=== PATIENT | female | born 1985 | race Caucasian/White ===

== ENCOUNTER 2016-05-12 01:39 | Emergency (ER) | payer OTHER ==
[~2016-05-12] VITALS: Ht 162.6 cm; Wt 47.0 kg
[~2016-05-12 01:39] MED LIST: AMBIEN5 MG PO; ANTIVERT25 MG PO; ARTIFICIALS TEA30 ML LEFT EYE; ATIVAN0.5 MG PO; BUSPAR15 MG PO; CYCLOBENZAPRINE10 MG PO; FLEXERIL5 MG PO; FOLIC ACID1 MG PO; HYDROXYZINE HCL25 MG PO; IBUPROFEN800 MG PO; LITHIUM CARBON600 MG PO; MACROBID100 MG PO; METHADONE10 MG PO; NAPROXEN250 MG PO; NORCO 5/3251 TABLET PO; OMEPRAZOLE20 M2 PO; PAROXETINE HCL30 MG PO; PREDNISONE10 MG PO; PRENATAL TABLE1 EAC3 PO; PROAIR HFA8.5 GM IH; PROMETHAZINE12.5 M1 PO; RANITIDINE HCL150 M1 PO; RANITIDINE HCL150 MG PO; SYNTHROID112 MCG PO; TYLENOL EXTRA500 MG PO; VOLTAREN 1% GE100 GM TP; ZITHROMAX250 MG PO; ZOFRAN ODT4 MG PO; ZYPREXA5 MG PO; ZYRTEC10 M3 PO
[2016-05-12] MEDS ORDERED: LIDOCARE1 EACH TP (04:15)
[2016-05-12 04:29] VITALS: BP 133/83
== END 2016-05-12 04:36 | disposition home or self-care (01) ==
LOC: EME 01:39
DX: S16.1XXA Strain of muscle, fascia and tendon at neck level, initial encounter (principal); V49.40XA Driver injured in collision with unspecified motor vehicles in traffic accident, initial encounter
CPT/HCPCS: 72040; 99281; 99284

== ENCOUNTER 2016-07-03 01:48 | Emergency (ER) | payer OTHER ==
[~2016-07-03] VITALS: Ht 160 cm; Wt 50.4 kg
[~2016-07-03 01:48] MED LIST changes: +LIDOCARE1 EACH TP
[2016-07-03 02:50] VITALS: BP 130/92
== END 2016-07-03 02:52 | disposition home or self-care (01) ==
LOC: EME 01:48
DX: F41.9 Anxiety disorder, unspecified (principal); F17.200 Nicotine dependence, unspecified, uncomplicated
CPT/HCPCS: 99281; 99283

== ENCOUNTER → 2016-07-09 | Outpatient (CLI) | payer OTHER | END | disposition home or self-care (01) | LOC: CDC 11:27 | DX: R00.0 Tachycardia, unspecified (principal); I51.7 Cardiomegaly; I45.81 Long QT syndrome | CPT/HCPCS: 93000 ==

== ENCOUNTER 2016-07-22 04:19 | Emergency (ER) | payer OTHER ==
[~2016-07-22] VITALS: Ht 160 cm; Wt 51.3 kg
[2016-07-22 05:09] VITALS: BP 134/99
== END 2016-07-22 05:12 | disposition home or self-care (01) ==
LOC: EME 04:19
DX: F41.9 Anxiety disorder, unspecified (principal); S06.0X0A Concussion without loss of consciousness, initial encounter; S43.401A Unspecified sprain of right shoulder joint, initial encounter; S80.11XA Contusion of right lower leg, initial encounter; W22.09XA Striking against other stationary object, initial encounter; Y92.008 Other place in unspecified non-institutional (private) residence as the place of occurrence of the external cause; F17.200 Nicotine dependence, unspecified, uncomplicated
CPT/HCPCS: 99281; 99285

== ENCOUNTER 2016-09-28 14:06 | Emergency (ER) | payer OTHER ==
[~2016-09-28] VITALS: Ht 160 cm; Wt 43.7 kg
[2016-09-28] MEDS ORDERED: PEPCID20 MG PO (15:42)
[2016-09-28 16:00] VITALS: BP 130/84
== END 2016-09-28 16:01 | disposition home or self-care (01) ==
LOC: EME 14:06
DX: R21 Rash and other nonspecific skin eruption (principal); W57.XXXA Bitten or stung by nonvenomous insect and other nonvenomous arthropods, initial encounter; K21.9 Gastro-esophageal reflux disease without esophagitis; F17.200 Nicotine dependence, unspecified, uncomplicated
CPT/HCPCS: 99281; 99283; Q0169

== ENCOUNTER 2016-10-11 22:33 | Emergency (ER) | payer OTHER ==
[~2016-10-11] VITALS: Ht 160 cm; Wt 47.2 kg
[~2016-10-11 22:33] MED LIST changes: +PEPCID20 MG PO
[2016-10-11 23:59] LABS: EOSINOPHIL (%) 1.4 % (0-5); EOSINOPHIL COUNT 0.1 K/uL (0-0.3); HEMATOCRIT 38.2 % (36.0-46.0); IMMATURE GRANULOCYTE (%) 0.3 % (0.0-0.7); INSTRUMENT ABS NEUTROPHIL CT 3.1 K/uL; LYMPHOCYTE COUNT 3.5 K/uL (1.0-2.8); MCH 30.8 PG (29.0-34.0); MCHC 33.2 G/DL (30.0-36.0); MCV 92.7 FL (83-99); MEAN PLAT.VOLUME 10.2 uM^3 (9.5-12.4); MONOCYTE (%) 7.6 % (3-12); MONOCYTE COUNT 0.6 K/uL (0-0.8); NEUTROPHIL (%) 42.7 % (45-76); NEUTROPHIL COUNT 3.1 K/uL (1.8-6.4); PLATELET COUNT 116 K/uL (156-360); RBC DIS.WIDTH-CV 12.1 % (11.8-14.6); RBC DIS.WIDTH-SD 41.6 % (39-53); RED BLOOD COUNT 4.12 M/uL (3.80-5.20); WHITE BLOOD COUNT 7.4 K/uL (4.1-10.2)
[2016-10-12 00:07] LABS: CHLORIDE 104 mEq/L (99-109); POTASSIUM 3.7 mEq/L (3.7-5.4); SODIUM 139 mEq/L (136-147)
[2016-10-12 00:09] LABS: GLUCOSE 75 mg/dL (70-99)
[2016-10-12 00:10] LABS: ANION GAP 8 MEQ/L (2-14)
[2016-10-12 00:13] LABS: GFR ESTIMATE (CALCULATED) > 59 mL/min/; UREA NITROGEN (BUN) 19 mg/dL (9-23)
[2016-10-12 00:22] LABS: QUANTITATIVE HCG < 4.0 MIU/ML
[2016-10-12 00:58] LABS: SERUM ETHYL ALCOHOL < 10 mg/dL
[2016-10-12 01:01] LABS: SALICYLATE < 5.0 MG/DL (15-30)
[2016-10-12] MEDS ORDERED: NARCAN4 MG NS (02:44)
[2016-10-12 02:56] LABS: AMPHETAMINE NEGATIVE (500 ng/mL); COCAINE NEGATIVE (150 ng/mL); METHAMPHETAMINE NEGATIVE (500 ng/mL); OPIATES (MORPHINE) NEGATIVE (100 ng/mL); PHENCYCLIDINE NEGATIVE (25 ng/mL); THC CANNABINOIDS NEGATIVE (50 ng/mL)
[2016-10-12 02:57] LABS: ADD MEDTOX COMMENT Y; BARBITURATES NEGATIVE (200 ng/mL); BENZODIAZEPINES PRESUMPTIVE POSITIVE (150 ng/mL); INTERNAL CONTROLS VALID? YES; METHADONE PRESUMPTIVE POSITIVE (200 ng/mL); OXYCODONE NEGATIVE (100 ng/mL); PROPOXYPHENE NEGATIVE (300 ng/mL); TRICYCLIC ANTIDEPRESSANTS NEGATIVE (300 ng/mL)
[2016-10-12 03:23] VITALS: BP 111/69
[2016-10-12 03:39] LABS: BENZODIAZEPINES, URINE SCREEN POSITIVE (200 ng/mL)
== END 2016-10-12 03:24 | disposition home or self-care (01) ==
LOC: EME 22:33
PROVIDERS: Physician Assistant
DX: F11.10 Opioid abuse, uncomplicated (principal); R41.82 Altered mental status, unspecified; R51 Headache; M54.2 Cervicalgia; S80.212A Abrasion, left knee, initial encounter; W01.0XXA Fall on same level from slipping, tripping and stumbling without subsequent striking against object, initial encounter; Y99.0 Civilian activity done for income or pay; Z72.0 Tobacco use
CPT/HCPCS: 70450; 72125; 73564; 80048; 84702; 84999; 85025; 93005; 99281; 99284; G0480; J2060; J2310; J7030

== ENCOUNTER 2016-10-15 21:42 | Emergency (ER) | payer OTHER ==
[~2016-10-15] VITALS: Ht 160 cm; Wt 42.7 kg
[~2016-10-15 21:42] MED LIST changes: +NARCAN4 MG NS
[2016-10-16] MEDS ORDERED: BACTRIM,SEPT1 TABLET PO (00:06)
[2016-10-16] MEDS ORDERED: CLEOCIN300 MG PO (00:06)
[2016-10-16] MEDS ORDERED: MUPIROCIN1 GM TP (00:21)
[2016-10-16 00:24] VITALS: BP 118/75
== END 2016-10-16 00:25 | disposition home or self-care (01) ==
LOC: EME 21:42
DX: S80.869A Insect bite (nonvenomous), unspecified lower leg, initial encounter (principal); L03.119 Cellulitis of unspecified part of limb; S90.426A Blister (nonthermal), unspecified lesser toe(s), initial encounter; W18.40XA Slipping, tripping and stumbling without falling, unspecified, initial encounter; W57.XXXA Bitten or stung by nonvenomous insect and other nonvenomous arthropods, initial encounter; Z88.1 Allergy status to other antibiotic agents; Z88.0 Allergy status to penicillin; Z88.6 Allergy status to analgesic agent; F17.200 Nicotine dependence, unspecified, uncomplicated
CPT/HCPCS: 99281; 99283

== ENCOUNTER 2017-02-08 14:46 | Inpatient (IN) | payer OTHER ==
[~2017-02-08] VITALS: Ht 165.1 cm; Wt 54.5 kg
[~2017-02-08 14:46] MED LIST changes: +BACTRIM,SEPT1 TABLET PO; +CLEOCIN300 MG PO; +MUPIROCIN1 GM TP
[2017-02-08 15:36] LABS: HEMATOCRIT 37.4 % (36.0-46.0); MCH 31.6 PG (29.0-34.0); MCHC 33.4 G/DL (30.0-36.0); MCV 94.7 FL (83-99); MEAN PLAT.VOLUME 9.6 uM^3 (9.5-12.4); PLATELET COUNT 139 K/uL (156-360); RBC DIS.WIDTH-CV 11.5 % (11.8-14.6); RED BLOOD COUNT 3.95 M/uL (3.80-5.20); WHITE BLOOD COUNT 6.6 K/uL (4.1-10.2)
[2017-02-08 15:43] LABS: CHLORIDE 107 mEq/L (99-109); POTASSIUM 3.5 mEq/L (3.7-5.4); SODIUM 139 mEq/L (136-147)
[2017-02-08 15:45] LABS: GLUCOSE 81 mg/dL (70-99)
[2017-02-08 15:46] LABS: ANION GAP 8 MEQ/L (2-14)
[2017-02-08 15:47] LABS: TOTAL BILIRUBIN 0.2 mg/dL (0.0-1.0)
[2017-02-08 15:48] LABS: SERUM ETHYL ALCOHOL < 10 mg/dL
[2017-02-08 15:49] LABS: ALKALINE PHOSPHATASE 59 IU/L (3-129); GFR ESTIMATE (CALCULATED) > 59 mL/min/
[2017-02-08 15:51] LABS: UREA NITROGEN (BUN) 16 mg/dL (9-23)
[2017-02-08 15:52] LABS: SALICYLATE < 5.0 MG/DL (15-30)
[2017-02-08 16:01] LABS: QUANTITATIVE HCG < 4.0 MIU/ML
[2017-02-08 16:41] LABS: ADD MIUA? NO; BILIRUBIN NEGATIVE; BLOOD NEGATIVE; COLOR YELLOW ((YELLOW)); GLUCOSE (STRIP) NEGATIVE; KETONES NEGATIVE; LEUKOCYTES NEGATIVE; NITRITE NEGATIVE; PROTEIN (STRIP) NEGATIVE; SPECIFIC GRAVITY 1.021 (1.000-1.030); UROBILINOGEN 0.2 MG/DL (0.2-1.0)
[2017-02-08 16:52] LABS: AMPHETAMINE NEGATIVE (500 ng/mL); BARBITURATES NEGATIVE (200 ng/mL); BENZODIAZEPINES PRESUMPTIVE POSITIVE (150 ng/mL); COCAINE NEGATIVE (150 ng/mL); INTERNAL CONTROLS VALID? YES; METHADONE PRESUMPTIVE POSITIVE (200 ng/mL); METHAMPHETAMINE NEGATIVE (500 ng/mL); OPIATES (MORPHINE) NEGATIVE (100 ng/mL); OXYCODONE NEGATIVE (100 ng/mL); PHENCYCLIDINE NEGATIVE (25 ng/mL); PROPOXYPHENE NEGATIVE (300 ng/mL); THC CANNABINOIDS NEGATIVE (50 ng/mL); TRICYCLIC ANTIDEPRESSANTS NEGATIVE (300 ng/mL)
[2017-02-08 16:53] LABS: ADD MEDTOX COMMENT Y
[2017-02-08 17:19] LABS: BENZODIAZEPINES, URINE SCREEN POSITIVE (200 ng/mL)
[2017-02-09 00:53] VITALS: BP 104/69
[2017-02-09 08:15] VITALS: BP 96/55
[2017-02-09 16:01] VITALS: BP 115/82
[2017-02-10 08:02] VITALS: BP 114/65
[2017-02-10] MEDS ORDERED: LEVOTHYROXINE175 MCG PO (09:27)
[2017-02-10] MEDS ORDERED: QUETIAPINE FUMA50 MG PO (09:27)
[2017-02-10] MEDS ORDERED: CLONAZEPAM0.5 MG PO (09:27)
[2017-02-10] MEDS ORDERED: BUSPAR10 MG PO (09:31)
== END 2017-02-10 10:51 | disposition home or self-care (01) | DRG 882 ==
LOC: EME 14:46 → EDOF 22:31 → 1WEST 22:31 → ENRESERV 02-09 00:37 → 1WEST 02-09 00:37
PROVIDERS: Emergency Medicine
DX: F43.25 Adjustment disorder with mixed disturbance of emotions and conduct (principal); G47.00 Insomnia, unspecified; F60.9 Personality disorder, unspecified; F17.200 Nicotine dependence, unspecified, uncomplicated; Z81.8 Family history of other mental and behavioral disorders; Z56.0 Unemployment, unspecified; F11.20 Opioid dependence, uncomplicated; F13.120 Sedative, hypnotic or anxiolytic abuse with intoxication, uncomplicated; T42.4X2A Poisoning by benzodiazepines, intentional self-harm, initial encounter
CPT/HCPCS: 80053; 81003; 84702; 84999; 85027; 90837; 99281; 99284; G0480; J7030; Q0169

== ENCOUNTER 2017-03-20 13:58 | Emergency (ER) | payer OTHER ==
[~2017-03-20] VITALS: Ht 160 cm; Wt 49.2 kg
[~2017-03-20 13:58] MED LIST changes: +BUSPAR10 MG PO; +CLONAZEPAM0.5 MG PO; +LEVOTHYROXINE175 MCG PO; +QUETIAPINE FUMA50 MG PO
[2017-03-20 15:54] VITALS: BP 116/75
== END 2017-03-20 15:58 | disposition left against medical advice (07) ==
LOC: EME 13:58
DX: S01.01XA Laceration without foreign body of scalp, initial encounter (principal); S40.212A Abrasion of left shoulder, initial encounter; W19.XXXA Unspecified fall, initial encounter; F19.10 Other psychoactive substance abuse, uncomplicated; Z23 Encounter for immunization; Z53.20 Procedure and treatment not carried out because of patient's decision for unspecified reasons; F17.200 Nicotine dependence, unspecified, uncomplicated
CPT/HCPCS: 99281; 99285

== ENCOUNTER 2017-06-05 15:06 | Emergency (ER) | payer OTHER ==
[~2017-06-05] VITALS: Ht 160 cm; Wt 58.7 kg
[2017-06-05] MEDS ORDERED: METHADONE1 MG/1 ML PO (15:22)
[2017-06-05 16:26] LABS: BASOPHIL (%) 0.4 % (0-1); EOSINOPHIL COUNT 0.1 K/uL (0-0.3); HEMATOCRIT 36.8 % (36.0-46.0); HEMOGLOBIN 12.3 G/DL (11.9-15.5); IMMATURE GRANULOCYTE (%) 0.2 % (0.0-0.7); LYMPHOCYTE (%) 27.2 % (15-42); LYMPHOCYTE COUNT 2.3 K/uL (1.0-2.8); MCH 32.4 PG (29.0-34.0); MCHC 33.4 G/DL (30.0-36.0); MCV 96.8 FL (83-99); MONOCYTE (%) 6.2 % (3-12); MONOCYTE COUNT 0.5 K/uL (0-0.8); NEUTROPHIL COUNT 5.5 K/uL (1.8-6.4); PLATELET COUNT 137 K/uL (156-360); RBC DIS.WIDTH-CV 12.4 % (11.8-14.6); RBC DIS.WIDTH-SD 44.4 % (39-53); WHITE BLOOD COUNT 8.4 K/uL (4.1-10.2)
[2017-06-05 16:37] LABS: ALBUMIN 3.7 g/dL (3.2-4.8); CHLORIDE 106 mEq/L (99-109); POTASSIUM 3.7 mEq/L (3.7-5.4); SODIUM 142 mEq/L (136-147)
[2017-06-05 16:39] LABS: GLUCOSE 78 mg/dL (70-99)
[2017-06-05 16:41] LABS: TOTAL BILIRUBIN 0.4 mg/dL (0.0-1.0)
[2017-06-05 16:42] LABS: SERUM ETHYL ALCOHOL < 10 mg/dL
[2017-06-05 16:43] LABS: ALKALINE PHOSPHATASE 56 IU/L (3-129); CREATININE 0.8 mg/dL (0.6-1.3); GFR ESTIMATE (CALCULATED) > 59 mL/min/
[2017-06-05 16:44] LABS: AST (GOT) 16 IU/L (2-34); UREA NITROGEN (BUN) 22 mg/dL (9-23)
[2017-06-05 16:46] LABS: ALT (GPT) 19 IU/L (3-49)
[2017-06-05 16:53] LABS: QUANTITATIVE HCG < 4.0 MIU/ML
[2017-06-05] MEDS ORDERED: NARCAN4 MG NS (20:44)
[2017-06-05 21:02] VITALS: BP 109/70
== END 2017-06-05 21:03 | disposition home or self-care (01) ==
LOC: EME 15:06
PROVIDERS: Emergency Medicine
DX: T40.3X1A Poisoning by methadone, accidental (unintentional), initial encounter (principal); R01.1 Cardiac murmur, unspecified; F17.200 Nicotine dependence, unspecified, uncomplicated; Z88.0 Allergy status to penicillin; Z88.1 Allergy status to other antibiotic agents; Z88.5 Allergy status to narcotic agent; Z88.8 Allergy status to other drugs, medicaments and biological substances
CPT/HCPCS: 80053; 84702; 85025; 99281; 99285; G0480; J2310; J7030

== ENCOUNTER 2017-07-07 20:05 | Inpatient (IN) | payer OTHER ==
[~2017-07-07] VITALS: Ht 162.6 cm; Wt 56.3 kg
[~2017-07-07 20:05] MED LIST changes: +METHADONE1 MG/1 ML PO
[2017-07-07 20:41] LABS: BASOPHIL (%) 0.1 % (0-1); EOSINOPHIL (%) 0 % (0-5); HEMATOCRIT 38.3 % (36.0-46.0); HEMOGLOBIN 13.1 G/DL (11.9-15.5); IMMATURE GRANULOCYTE (%) 0.4 % (0.0-0.7); LYMPHOCYTE (%) 9.3 % (15-42); LYMPHOCYTE COUNT 0.8 K/uL (1.0-2.8); MCHC 34.2 G/DL (30.0-36.0); MCV 93.6 FL (83-99); MONOCYTE (%) 5.6 % (3-12); MONOCYTE COUNT 0.5 K/uL (0-0.8); NEUTROPHIL (%) 84.6 % (45-76); NEUTROPHIL COUNT 7.5 K/uL (1.8-6.4); PLATELET COUNT 133 K/uL (156-360); RBC DIS.WIDTH-CV 11.8 % (11.8-14.6); RBC DIS.WIDTH-SD 40.5 % (39-53); RED BLOOD COUNT 4.09 M/uL (3.80-5.20); WHITE BLOOD COUNT 8.9 K/uL (4.1-10.2)
[2017-07-07 20:52] LABS: BASE EXCESS -5.2 mEq/L (-3 to +3); CARBOXY HGB 1.9 % (0-5); METHEMOGLOBIN 1.3 % (0-1.5); PCO2 37 mm Hg (35-45); PO2 > 583 mm Hg (80-100); SITE RR; pH 7.34 (7.35-7.45)
[2017-07-07 20:53] LABS: COMMENTS - BLOOD GASES C+A+; DEVICE VENT; FI02 100 %; MECHANICAL RATE 20 resp/min; MODE AC; PEEP 5 CM/H20; TIDAL VOLUME 400 ML; TOTAL RESP RATE 20 resp/min
[2017-07-07 20:59] LABS: ALBUMIN 3.9 g/dL (3.2-4.8)
[2017-07-07 20:59] LABS: APPEARANCE CLOUDY ((CLEAR)); BILIRUBIN NEGATIVE; BLOOD NEGATIVE; GLUCOSE (STRIP) NEGATIVE; KETONES NEGATIVE; LEUKOCYTES MODERATE; NITRITE NEGATIVE; PROTEIN (STRIP) 100; SPECIFIC GRAVITY 1.024 (1.000-1.030); UROBILINOGEN 0.2 MG/DL (0.2-1.0)
[2017-07-07 21:00] LABS: CHLORIDE 107 mEq/L (99-109); POTASSIUM 3.1 mEq/L (3.7-5.4); SODIUM 140 mEq/L (136-147)
[2017-07-07 21:02] LABS: GLUCOSE 205 mg/dL (70-99); TOTAL PROTEIN 6.7 g/dL (6.4-8.3)
[2017-07-07 21:03] LABS: TROP-I INTERPRETATION NEGATIVE; TROPONIN-I 0.01 ng/mL (0.0-0.30)
[2017-07-07 21:03] LABS: COLOR YELLOW ((YELLOW))
[2017-07-07 21:04] LABS: TOTAL BILIRUBIN 0.4 mg/dL (0.0-1.0)
[2017-07-07 21:05] LABS: SERUM ETHYL ALCOHOL < 10 mg/dL
[2017-07-07 21:06] LABS: ALKALINE PHOSPHATASE 66 IU/L (3-129); GFR ESTIMATE (CALCULATED) > 59 mL/min/
[2017-07-07 21:07] LABS: AST (GOT) 33 IU/L (2-34)
[2017-07-07 21:08] LABS: UREA NITROGEN (BUN) 22 mg/dL (9-23)
[2017-07-07 21:09] LABS: ALT (GPT) 28 IU/L (3-49); SALICYLATE < 5.0 MG/DL (15-30)
[2017-07-07 21:10] LABS: ACETAMINOPHEN (TYLENOL) < 10 mcg/mL (10-30); TOTAL CK 1884 IU/L (1-294)
[2017-07-07 21:10] LABS: AMPHETAMINE NEGATIVE (500 ng/mL); BARBITURATES NEGATIVE (200 ng/mL); BENZODIAZEPINES PRESUMPTIVE POSITIVE (150 ng/mL); BUPRENORPHINE NEGATIVE (10 ng/mL); COCAINE NEGATIVE (150 ng/mL); METHADONE PRESUMPTIVE POSITIVE (200 ng/mL); METHAMPHETAMINE NEGATIVE (500 ng/mL); OPIATES (MORPHINE) NEGATIVE (100 ng/mL); OXYCODONE NEGATIVE (100 ng/mL); PHENCYCLIDINE NEGATIVE (25 ng/mL); PROPOXYPHENE PRESUMPTIVE POSITIVE (300 ng/mL); THC CANNABINOIDS NEGATIVE (50 ng/mL); TRICYCLIC ANTIDEPRESSANTS PRESUMPTIVE POSITIVE (300 ng/mL)
[2017-07-07 21:16] LABS: QUANTITATIVE HCG 95.1 MIU/ML
[2017-07-07 21:20] LABS: CREATINE KINASE 1884 IU/L (1-294)
[2017-07-07 21:43] LABS: RED BLOOD CELLS NONE SEEN /HPF (0-5)
[2017-07-07 21:44] LABS: EPITHELIAL CELLS 3+ /HPF; MUCUS NONE SEEN /LPF
[2017-07-07 21:45] LABS: BACTERIA 2+ /HPF; UCUL ADDED? YES
[2017-07-07 21:55] LABS: MAGNESIUM 1.9 mg/dL (1.3-2.7)
[2017-07-07 22:16] LABS: BENZODIAZEPINES, URINE SCREEN POSITIVE (200 ng/mL)
[2017-07-07] MEDS ORDERED: BUSPAR30 MG PO (22:19)
[2017-07-07] MEDS ORDERED: REMERON30 M2 PO (22:20)
[2017-07-07] MEDS ORDERED: PRAZOSIN HCL2 MG PO (22:20)
[2017-07-07] MEDS ORDERED: PROMETHAZINE HC25 M1 PO (22:21)
[2017-07-07] MEDS ORDERED: XANAX1 MG PO (22:21)
[2017-07-07] MEDS ORDERED: TRILEPTAL150 MG PO (22:22)
[2017-07-07] MEDS ORDERED: NEURONTIN300 MG PO (22:22)
[2017-07-07] MEDS ORDERED: OMEPRAZOLE10 M1 PO (22:23)
[2017-07-07 22:24] LABS: CK-MB 2.7 ng/mL (0.0-4.9); CKMB RELATIVE INDEX 0.1 (0.0-3.9)
[2017-07-07] MEDS ORDERED: SEROQUEL300 MG PO (22:24)
[2017-07-07] MEDS ORDERED: NARCAN4 MG NS (22:34)
[2017-07-07] MEDS ORDERED: IBUPROFEN800 MG PO (22:35)
[2017-07-07] MEDS ORDERED: TYLENOL EXTRA500 MG PO (22:36)
[2017-07-07 22:38] LABS: CHLORIDE 112 mEq/L (99-109); POTASSIUM 3.3 mEq/L (3.7-5.4); SODIUM 141 mEq/L (136-147)
[2017-07-07 22:40] LABS: GLUCOSE 134 mg/dL (70-99)
[2017-07-07 22:43] LABS: CREATININE 0.8 mg/dL (0.6-1.3); GFR ESTIMATE (CALCULATED) > 59 mL/min/
[2017-07-07] MEDS ORDERED: LEVO-T175 MCG PO (22:43)
[2017-07-07 22:44] LABS: UREA NITROGEN (BUN) 19 mg/dL (9-23)
[2017-07-07 22:53] LABS: QUANTITATIVE HCG 81.1 MIU/ML
[2017-07-07 23:15] VITALS: BP 131/72
[2017-07-08] VITALS (21 sets, daily range): BP systolic 90–140; BP diastolic 40–118
[2017-07-08 05:54] LABS: BASE EXCESS -1.9 mEq/L (-3 to +3); BICARBONATE 22.1 mEq/L (22-26); CARBOXY HGB 1.1 % (0-5); METHEMOGLOBIN 1.7 % (0-1.5); PCO2 34 mm Hg (35-45); PO2 152 mm Hg (80-100); pH 7.42 (7.35-7.45)
[2017-07-08 05:55] LABS: COMMENTS - BLOOD GASES C+; DEVICE VENT; FI02 30 %; MECHANICAL RATE 20 resp/min; MODE A/C; PEEP 5 CM/H20; SITE RR; TIDAL VOLUME 400 ML; TOTAL RESP RATE 21 resp/min
[2017-07-08 06:10] LABS: BASOPHIL (%) 0.1 % (0-1); EOSINOPHIL (%) 0 % (0-5); HEMATOCRIT 29.9 % (36.0-46.0); IMMATURE GRANULOCYTE (%) 0.5 % (0.0-0.7); LYMPHOCYTE (%) 13.9 % (15-42); LYMPHOCYTE COUNT 1.3 K/uL (1.0-2.8); MCH 32.2 PG (29.0-34.0); MCHC 33.1 G/DL (30.0-36.0); MCV 97.4 FL (83-99); MONOCYTE (%) 5.5 % (3-12); MONOCYTE COUNT 0.5 K/uL (0-0.8); NEUTROPHIL COUNT 7.4 K/uL (1.8-6.4); PLATELET COUNT 116 K/uL (156-360); WHITE BLOOD COUNT 9.2 K/uL (4.1-10.2)
[2017-07-08 06:14] LABS: HEMOGLOBIN 9.9 G/DL (11.9-15.5); RED BLOOD COUNT 3.07 M/uL (3.80-5.20)
[2017-07-08 06:24] LABS: CHLORIDE 115 MEQ/L (99-109); CREATININE 0.6 MG/DL (0.6-1.3); GFR ESTIMATE (CALCULATED) > 59 mL/min/; GLUCOSE 119 mg/dL (70-99); PHOSPHORUS 2.3 mg/dL (2.5-4.9); POTASSIUM 3.4 MEQ/L (3.7-5.4); SODIUM 146 MEQ/L (136-147); UREA NITROGEN (BUN) 14 mg/dL (9-23)
[2017-07-08 06:26] LABS: CREATINE KINASE 1239 IU/L (1-294)
[2017-07-09] VITALS (23 sets, daily range): BP systolic 103–150; BP diastolic 55–138
[2017-07-10] VITALS (8 sets, daily range): BP systolic 126–146; BP diastolic 76–90
[2017-07-10 05:27] LABS: HEMATOCRIT 33.1 % (36.0-46.0); HEMOGLOBIN 11.1 G/DL (11.9-15.5); MCHC 33.5 G/DL (30.0-36.0); MCV 95.4 FL (83-99); PLATELET COUNT 127 K/uL (156-360); RBC DIS.WIDTH-CV 12.3 % (11.8-14.6); RBC DIS.WIDTH-SD 43.1 % (39-53); RED BLOOD COUNT 3.47 M/uL (3.80-5.20); WHITE BLOOD COUNT 7.5 K/uL (4.1-10.2)
[2017-07-10 06:00] LABS: ALBUMIN 3.5 G/DL (3.2-4.8); ALKALINE PHOSPHATASE 49 IU/L (3-129); ALT (GPT) 50 IU/L (3-49); AST (GOT) 90 IU/L (2-34); CHLORIDE 104 MEQ/L (99-109); CREATININE 0.5 MG/DL (0.6-1.3); GFR ESTIMATE (CALCULATED) > 59 mL/min/; GLUCOSE 94 mg/dL (70-99); POTASSIUM 3.5 MEQ/L (3.7-5.4); SODIUM 140 MEQ/L (136-147); TOTAL BILIRUBIN 0.4 MG/DL (0.0-1.0); TOTAL PROTEIN 5.9 G/DL (6.4-8.3); UREA NITROGEN (BUN) 4 mg/dL (9-23)
[2017-07-10 06:26] LABS: CREATINE KINASE 4468 IU/L (1-294)
[2017-07-10 15:15] LABS: ALBUMIN 3.6 G/DL (3.2-4.8); ALKALINE PHOSPHATASE 49 IU/L (3-129); ALT (GPT) 49 IU/L (3-49); AST (GOT) 74 IU/L (2-34); DIRECT BILIRUBIN 0.1 mg/dL (0.0-0.3); TOTAL PROTEIN 6.3 G/DL (6.4-8.3)
[2017-07-10 15:24] LABS: CREATINE KINASE 2834 IU/L (1-294); TOTAL BILIRUBIN 0.3 MG/DL (0.0-1.0)
[2017-07-10 17:54] LABS: QUANTITATIVE HCG 311.4 MIU/ML
[2017-07-11 01:11] VITALS: BP 129/68
[2017-07-11 04:03] VITALS: BP 117/81
[2017-07-11 08:20] VITALS: BP 121/77
[2017-07-11] MEDS ORDERED: AMOX TR-K CLV1 EAC4 PO (10:06)
[2017-07-11] MEDS ORDERED: NICOTINE PATCH1 EAC1 TD (10:06)
[2017-07-11] MEDS ORDERED: MINIPRESS2 MG PO (17:49)
[2017-07-11] MEDS ORDERED: TYLENOL WITH C1 EACH PO (17:53)
[2017-07-11] MEDS ORDERED: REMERON30 M2 PO (17:56)
[2017-07-11] MEDS ORDERED: SEROQUEL400 MG PO (17:57)
[2017-07-12] MEDS ORDERED: BUSPAR30 MG PO (09:25)
[2017-07-12] MEDS ORDERED: PRENATAL VITAM1 EAC6 PO (09:25)
[2017-07-12] MEDS ORDERED: REMERON30 M2 PO (09:25)
[2017-07-12] MEDS ORDERED: AMOX TR-K CLV1 EAC4 PO (09:25)
[2017-07-12] MEDS ORDERED: SEROQUEL400 MG PO (09:25)
[2017-07-12] MEDS ORDERED: PROMETHAZINE HC25 M1 PO (11:19)
== END 2017-07-11 16:08 | DRG 781 ==
LOC: EME → EDBD 20:05 → 4WEST 22:09 → EDOF 22:09 → 5SOUTH 22:09 → ENRESERV 22:10 → 4WEST 22:54 → ENRESERV 07-10 01:46 → 5SOUTH 07-10 03:39 → ENPENDDIS 07-11 11:59 → 5SOUTH 07-11 16:08
PROVIDERS: Emergency Medicine; Internal Medicine; Internal Medicine Critical Care Medicine; Specialist
PROC: 5A1945Z Respiratory Ventilation, 24-96 Consecutive Hours (ICD-10-PCS; principal; 2017-07-07)
PROC: 0BH17EZ Insertion of Endotracheal Airway into Trachea, Via Natural or Artificial Opening (ICD-10-PCS; 2017-07-07)
DX: O9A.211 Injury, poisoning and certain other consequences of external causes complicating pregnancy, first trimester (principal); T42.4X2A Poisoning by benzodiazepines, intentional self-harm, initial encounter; T40.602A Poisoning by unspecified narcotics, intentional self-harm, initial encounter; O99.511 Diseases of the respiratory system complicating pregnancy, first trimester; J96.00 Acute respiratory failure, unspecified whether with hypoxia or hypercapnia; J69.0 Pneumonitis due to inhalation of food and vomit; O99.89 Other specified diseases and conditions complicating pregnancy, childbirth and the puerperium; M62.82 Rhabdomyolysis; O99.281 Endocrine, nutritional and metabolic diseases complicating pregnancy, first trimester; E87.2 Acidosis; E83.42 Hypomagnesemia; E87.6 Hypokalemia; O99.411 Diseases of the circulatory system complicating pregnancy, first trimester; I95.9 Hypotension, unspecified; O99.011 Anemia complicating pregnancy, first trimester; D64.9 Anemia, unspecified; O99.321 Drug use complicating pregnancy, first trimester; F13.10 Sedative, hypnotic or anxiolytic abuse, uncomplicated; F11.10 Opioid abuse, uncomplicated; E03.9 Hypothyroidism, unspecified; O99.341 Other mental disorders complicating pregnancy, first trimester; F31.9 Bipolar disorder, unspecified; F43.25 Adjustment disorder with mixed disturbance of emotions and conduct; F60.9 Personality disorder, unspecified; F41.9 Anxiety disorder, unspecified; O99.611 Diseases of the digestive system complicating pregnancy, first trimester; K21.9 Gastro-esophageal reflux disease without esophagitis; O99.351 Diseases of the nervous system complicating pregnancy, first trimester; G47.00 Insomnia, unspecified; O99.331 Smoking (tobacco) complicating pregnancy, first trimester; F17.210 Nicotine dependence, cigarettes, uncomplicated; Z91.5 Personal history of self-harm; Z88.0 Allergy status to penicillin; Z88.5 Allergy status to narcotic agent; Z3A.01 Less than 8 weeks gestation of pregnancy
CPT/HCPCS: 36600; 70450; 71045; 80048; 80048 91; 80053; 80076; 81003; 82140; 82550; 82550 91; 82553; 82803; 83605; 83735; 84100; 84484; 84702; 84999; 85025; 85027; 87040; 87070; 87077; 87086; 87181; 87185; 87186; 87205; 87641; 93005; 94002; 94003; 94799; 99281; 99285; G0480; J0295; J0456; J0610; J1200; J1650; J2060; J2250; J2310; J2704; J3475; J3480; J7030; J7040; J7042; J7050; J7070; Q0169

== ENCOUNTER 2017-07-11 13:48 | Inpatient (IN) | payer OTHER ==
[~2017-07-11 13:48] MED LIST changes: +AMOX TR-K CLV1 EAC4 PO; +BUSPAR30 MG PO; +LEVO-T175 MCG PO; +NEURONTIN300 MG PO; +NICOTINE PATCH1 EAC1 TD; +OMEPRAZOLE10 M1 PO; +PRAZOSIN HCL2 MG PO; +PROMETHAZINE HC25 M1 PO; +REMERON30 M2 PO; +SEROQUEL300 MG PO; +TRILEPTAL150 MG PO; +XANAX1 MG PO
[2017-07-11 16:31] VITALS: BP 148/92
[2017-07-11] MEDS ORDERED: MINIPRESS2 MG PO (17:49)
[2017-07-11] MEDS ORDERED: TYLENOL WITH C1 EACH PO (17:53)
[2017-07-11] MEDS ORDERED: REMERON30 M2 PO (17:56)
[2017-07-11] MEDS ORDERED: SEROQUEL400 MG PO (17:57)
[2017-07-12 08:09] VITALS: BP 115/56
[2017-07-12] MEDS ORDERED: PRENATAL VITAM1 EAC6 PO (09:25)
[2017-07-12] MEDS ORDERED: SEROQUEL400 MG PO (09:25)
[2017-07-12] MEDS ORDERED: AMOX TR-K CLV1 EAC4 PO (09:25)
[2017-07-12] MEDS ORDERED: BUSPAR30 MG PO (09:25)
[2017-07-12] MEDS ORDERED: REMERON30 M2 PO (09:25)
[2017-07-12] MEDS ORDERED: PROMETHAZINE HC25 M1 PO (11:19)
== END 2017-07-12 11:57 | disposition home or self-care (01) | DRG 781 ==
LOC: 1WEST 13:48 → ENRESERV 14:44 → 1WEST 16:19
DX: O99.340 Other mental disorders complicating pregnancy, unspecified trimester (principal); F43.25 Adjustment disorder with mixed disturbance of emotions and conduct; F60.9 Personality disorder, unspecified; O99.320 Drug use complicating pregnancy, unspecified trimester; F11.10 Opioid abuse, uncomplicated; F13.10 Sedative, hypnotic or anxiolytic abuse, uncomplicated; O99.280 Endocrine, nutritional and metabolic diseases complicating pregnancy, unspecified trimester; E03.9 Hypothyroidism, unspecified; O99.619 Diseases of the digestive system complicating pregnancy, unspecified trimester; K21.9 Gastro-esophageal reflux disease without esophagitis
CPT/HCPCS: Q0169